=== PATIENT | female | born 1950 | race Caucasian/White ===

== ENCOUNTER 2022-03-07 14:26 | Inpatient (IN) | payer OTHER ==
[~2022-03-07 14:26] MED LIST: Iopamidol-370 76% 500 ML 1 ML ONE
[2022-03-07] MEDS ORDERED: Ondansetron PF 4 MG/2 ML Vial ONE (16:18)
[2022-03-07] MEDS ORDERED: Morphine 4 MG/ML VIAL ONE ×2 (16:18)
[2022-03-07] MEDS ORDERED: cefTRIAXone\\ROCEPHIN 2 GM VIAL ONE (16:18)
[2022-03-07 16:49] LABS: #Eosinphils 0.2 thou/uL (0.0-0.7); #Lymphocytes 2.5 thou/uL (1.20-3.40); #Monocytes 0.9 thou/uL (0.11-0.59); #Neutrophils 15.1 thou/uL (1.40-6.50); %Basophils 0.1 % (0.0-1.0); %Lymphocytes 13.3 % (21.0-51.0); %Monocytes 4.7 % (0.0-10.0); %Neutrophils 80.9 % (42.0-75.0); Hemoglobin 12.3 g/dL (12.0-16.0); Mean Corpuscular HGB CONC 30.9 g/dL (32.0-36.0); Mean Corpuscular Volume 93.8 fL (78.0-98.0); Mean Platelet Volume 8.5 fL (7.4-10.4); Platelet Count 231 thou/uL (130-400); RBC Distribution Width 15.9 % (11.5-14.5); Red Blood Cell (RBC) Count 4.25 mill/uL (4.20-5.40); White Blood Cell (WBC) Count 18.7 thou/uL (4.8-10.8)
[2022-03-07 16:50] LABS: Bacteria/HPF 4+ HPF (None Seen); Bilirubin 1+ (Negative); Blood, Urine 3+ (Negative); Clarity Turbid (Clear); Glucose, Urine (Dipstick) Normal (Negative); Ketone, Urine Trace mg/dL (Negative); Leukocyte 250 Leu/uL (Negative); Nitrite Negative (Negative); Protein, Urine (Dipstick) 70 mg/dL (Neg-Trace); RBC/HPF Greater than 50 HPF (0-3); Specific Gravity, Urine 1.028 (1.002-1.036); Squamous Epithelial 0-3 HPF (0-3); Urobilinogen 3 mg/dL (Less than 2); pH, Urine 5.5 (5.0-9.0)
[2022-03-07 17:00] LABS: INR-International Normal Ratio 1.2; PTT 32.1 sec (22.9-36.1); Prothrombin Time 15.2 sec (12.0-14.7)
[2022-03-07 17:17] LABS: ALT (SGPT) 22 U/L (8-55); AST (SGOT) 37 U/L (5-34); Albumin 3.6 g/dL (3.4-4.8); Alkaline Phosphatase 75 U/L (40-110); Anion Gap 15 mmol/L (10-20); BUN (Urea Nitrogen) 31 mg/dL (9.8-20.1); Bilirubin, Total 0.9 mg/dL (0.2-1.2); Calc. Creatinine Clearance 0 mL/min (70-130); Calcium 9.6 mg/dL (7.8-10.44); Carbon Dioxide 28 mmol/L (23-31); Chloride 97 mmol/L (98-107); Estimated GFR 47; Globulin 4.2 g/dL (2.4-3.5); Glucose 140 mg/dL (83-110); Lipase 14 U/L (8-78); Potassium 4.4 mmol/L (3.5-5.1); Protein, Total 7.8 g/dL (5.8-8.1); Sodium 136 mmol/L (136-145)
[2022-03-07] MEDS ORDERED: Acetaminophen 325 MG TAB PO PRN (20:15)
[2022-03-07] MEDS ORDERED: Ondansetron ODT 4 MG TAB SL PRN (20:15)
[2022-03-07] MEDS ORDERED: Ondansetron PF 4 MG/2 ML Vial IVP PRN (20:15)
[2022-03-07] MEDS ORDERED: Sodium Chloride 0.9% 1,000 ML IV SCH (20:15)
[2022-03-07] MEDS ORDERED: Senokot S 8.6-50 MG TAB PO PRN (22:00)
[2022-03-07] MEDS ORDERED: Bisacodyl 10 MG SUPP PR PRN (22:00)
[2022-03-07] MEDS ORDERED: HumaLOG 300 UNITS/3 ML VIAL SC PRN (22:00)
[2022-03-07] MEDS ORDERED: Dextrose 5% in Water 1,000 ML IV PRN (22:00)
[2022-03-07] MEDS ORDERED: Dextrose 50% Abboject 50 ML SYRINGE SLOW IVP PRN (22:00)
[2022-03-07] MEDS ORDERED: Acetaminophen 650 MG Suppository PR PRN (22:00)
[2022-03-07 22:32] VITALS: BMI 58.8
[2022-03-07] MEDS: Sodium Chloride 0.9% 1,000 ML IV SCH (23:41)
[2022-03-08 04:34] LABS: SARS-CoV-2 NAA Rapid Test Not Detected (NotDetected)
[2022-03-08 05:33] LABS: #Eosinphils 0.3 thou/uL (0.0-0.7); #Lymphocytes 2.7 thou/uL (1.20-3.40); #Monocytes 0.9 thou/uL (0.11-0.59); #Neutrophils 10.5 thou/uL (1.40-6.50); %Basophils 0.2 % (0.0-1.0); %Eosinophils 2.1 % (0.0-10.0); %Lymphocytes 18.7 % (21.0-51.0); %Monocytes 6.2 % (0.0-10.0); %Neutrophils 72.8 % (42.0-75.0); Hemoglobin 11.9 g/dL (12.0-16.0); Mean Corpuscular Volume 93.6 fL (78.0-98.0); Mean Platelet Volume 8.7 fL (7.4-10.4); Platelet Count 205 thou/uL (130-400); RBC Distribution Width 15.8 % (11.5-14.5); Red Blood Cell (RBC) Count 4.11 mill/uL (4.20-5.40); White Blood Cell (WBC) Count 14.5 thou/uL (4.8-10.8)
[2022-03-08 06:13] LABS: Anion Gap 13 mmol/L (10-20); BUN (Urea Nitrogen) 27 mg/dL (9.8-20.1); CK (CPK) 962 U/L (29-168); Calc. Creatinine Clearance 107 mL/min (70-130); Calcium 9.1 mg/dL (7.8-10.44); Carbon Dioxide 28 mmol/L (23-31); Chloride 99 mmol/L (98-107); Estimated GFR 50; Glucose 144 mg/dL (83-110); Potassium 4.1 mmol/L (3.5-5.1); Sodium 136 mmol/L (136-145)
[2022-03-08] MEDS: Sodium Chloride 0.9% 1,000 ML IV SCH ×2 (09:26→17:05)
[2022-03-08] MEDS: Famotidine 20 MG TAB PO SCH (09:27)
[2022-03-08] MEDS: cefTRIAXone\\ROCEPHIN 1 GM in Sodium Chloride 0.9% 100 ML IVPB SCH (09:27)
[2022-03-08] MEDS: Famotidine/PF 20 mg/2ml Vial SLOW IVP SCH (09:28)
[2022-03-08] MEDS: Gabapentin 300 MG CAP PO SCH ×2 (13:49→20:38)
[2022-03-08] MEDS: traMADol HCl 50 MG TAB PO PRN ×2 (13:50→20:39)
[2022-03-08] MEDS: HumaLOG 300 UNITS/3 ML VIAL SC PRN (17:05)
[2022-03-09] MEDS: HumaLOG 300 UNITS/3 ML VIAL SC PRN ×2 (06:09→13:07)
[2022-03-09] MEDS: Sodium Chloride 0.9% 1,000 ML IV SCH ×2 (06:10→13:10)
[2022-03-09] MEDS: Gabapentin 300 MG CAP PO SCH ×3 (08:32→22:12)
[2022-03-09] MEDS: Famotidine 20 MG TAB PO SCH (08:32)
[2022-03-09] MEDS: Famotidine/PF 20 mg/2ml Vial SLOW IVP SCH (08:32)
[2022-03-09] MEDS: cefTRIAXone\\ROCEPHIN 1 GM in Sodium Chloride 0.9% 100 ML IVPB SCH (08:34)
[2022-03-09] MEDS: traMADol HCl 50 MG TAB PO PRN ×2 (08:34→22:21)
[2022-03-09 10:29] LABS: #Basophils 0.1 thou/uL (0.0-0.2); #Eosinphils 0.4 thou/uL (0.0-0.7); #Lymphocytes 2.7 thou/uL (1.20-3.40); #Monocytes 0.9 thou/uL (0.11-0.59); #Neutrophils 6.6 thou/uL (1.40-6.50); %Basophils 0.5 % (0.0-1.0); %Eosinophils 3.6 % (0.0-10.0); %Lymphocytes 25.6 % (21.0-51.0); %Monocytes 8.6 % (0.0-10.0); %Neutrophils 61.7 % (42.0-75.0); Mean Corpuscular HGB CONC 30.4 g/dL (32.0-36.0); Mean Corpuscular Hemoglobin 29.1 pg (27.0-31.0); Mean Corpuscular Volume 95.6 fL (78.0-98.0); Mean Platelet Volume 8.7 fL (7.4-10.4); Platelet Count 217 thou/uL (130-400); Red Blood Cell (RBC) Count 4.12 mill/uL (4.20-5.40); White Blood Cell (WBC) Count 10.7 thou/uL (4.8-10.8)
[2022-03-09 10:34] LABS: Anion Gap 12 mmol/L (10-20); BUN (Urea Nitrogen) 11 mg/dL (9.8-20.1); CK (CPK) 479 U/L (29-168); Calc. Creatinine Clearance 121 mL/min (70-130); Carbon Dioxide 26 mmol/L (23-31); Chloride 103 mmol/L (98-107); Estimated GFR 58; Glucose 203 mg/dL (83-110); Sodium 137 mmol/L (136-145)
[2022-03-09] MEDS: Bisacodyl 5 MG TAB PO PRN (22:22)
[2022-03-09] MEDS: Guaifenesin DM 100-10/5 ML UDCUP PO PRN (22:32)
[2022-03-10] MEDS: Sodium Chloride 0.9% 1,000 ML IV SCH ×3 (03:20→21:26)
[2022-03-10 06:11] LABS: #Eosinphils 0.5 thou/uL (0.0-0.7); #Lymphocytes 3.1 thou/uL (1.20-3.40); #Neutrophils 6.9 thou/uL (1.40-6.50); %Basophils 0.1 % (0.0-1.0); %Eosinophils 4.3 % (0.0-10.0); %Lymphocytes 26.8 % (21.0-51.0); %Monocytes 8.8 % (0.0-10.0); Hemoglobin 11.5 g/dL (12.0-16.0); Mean Corpuscular HGB CONC 29.2 g/dL (32.0-36.0); Mean Corpuscular Volume 96.1 fL (78.0-98.0); Mean Platelet Volume 8.9 fL (7.4-10.4); Platelet Count 216 thou/uL (130-400); RBC Distribution Width 16.1 % (11.5-14.5); White Blood Cell (WBC) Count 11.6 thou/uL (4.8-10.8)
[2022-03-10 06:16] LABS: Anion Gap 12 mmol/L (10-20); BUN (Urea Nitrogen) 11 mg/dL (9.8-20.1); CK (CPK) 289 U/L (29-168); Calc. Creatinine Clearance 142 mL/min (70-130); Calcium 9.1 mg/dL (7.8-10.44); Carbon Dioxide 25 mmol/L (23-31); Chloride 104 mmol/L (98-107); Estimated GFR 70; Glucose 139 mg/dL (83-110); Potassium 4.3 mmol/L (3.5-5.1); Sodium 137 mmol/L (136-145)
[2022-03-10] MEDS: Famotidine 20 MG TAB PO SCH ×2 (08:56→21:18)
[2022-03-10] MEDS: Gabapentin 300 MG CAP PO SCH ×3 (08:57→21:18)
[2022-03-10] MEDS: Famotidine/PF 20 mg/2ml Vial SLOW IVP SCH ×2 (08:58→21:22)
[2022-03-10] MEDS: Acetaminophen 325 MG TAB PO PRN ×2 (15:51→21:19)
[2022-03-10] MEDS: cefTRIAXone\\ROCEPHIN 1 GM in Sodium Chloride 0.9% 100 ML IVPB SCH (17:26)
[2022-03-10] MEDS: Guaifenesin DM 100-10/5 ML UDCUP PO PRN (21:20)
[2022-03-10] MEDS: Bisacodyl 5 MG TAB PO PRN (21:26)
[2022-03-11 06:57] LABS: #Eosinphils 0.5 thou/uL (0.0-0.7); #Lymphocytes 2.8 thou/uL (1.20-3.40); #Monocytes 1.1 thou/uL (0.11-0.59); #Neutrophils 8.2 thou/uL (1.40-6.50); %Basophils 0.2 % (0.0-1.0); %Eosinophils 3.9 % (0.0-10.0); %Lymphocytes 22.1 % (21.0-51.0); %Monocytes 8.9 % (0.0-10.0); %Neutrophils 64.9 % (42.0-75.0); Mean Corpuscular HGB CONC 31.4 g/dL (32.0-36.0); Mean Corpuscular Hemoglobin 29.6 pg (27.0-31.0); Mean Corpuscular Volume 94.4 fL (78.0-98.0); Mean Platelet Volume 8.3 fL (7.4-10.4); Platelet Count 218 thou/uL (130-400); Red Blood Cell (RBC) Count 4.05 mill/uL (4.20-5.40); White Blood Cell (WBC) Count 12.6 thou/uL (4.8-10.8)
[2022-03-11 07:17] LABS: Anion Gap 7 mmol/L (10-20); BUN (Urea Nitrogen) 9 mg/dL (9.8-20.1); Calc. Creatinine Clearance 152 mL/min (70-130); Calcium 9.2 mg/dL (7.8-10.44); Carbon Dioxide 30 mmol/L (23-31); Chloride 106 mmol/L (98-107); Estimated GFR 76; Glucose 171 mg/dL (83-110); Potassium 3.9 mmol/L (3.5-5.1); Sodium 139 mmol/L (136-145)
[2022-03-11] MEDS: Famotidine 20 MG TAB PO SCH (09:29)
[2022-03-11] MEDS: Gabapentin 300 MG CAP PO SCH ×2 (09:29→15:50)
[2022-03-11] MEDS: Famotidine/PF 20 mg/2ml Vial SLOW IVP SCH (09:30)
[2022-03-11] MEDS: Sodium Chloride 0.9% 1,000 ML IV SCH ×2 (09:31→16:20)
[2022-03-11 15:45] VITALS: BP 177/88; TEMP 98.5
== END 2022-03-11 17:00 | disposition home health service (06) | DRG 565 ==
LOC: ERS 14:26 → SJJU 20:04
PROVIDERS: ADMIT Student in an Organized Health Care Education/Training Program; ATTEND Internal Medicine
DX: T79.6XXA Traumatic ischemia of muscle, initial encounter (principal); N17.9 Acute kidney failure, unspecified; N30.01 Acute cystitis with hematuria; Z68.43 Body mass index [BMI] 50.0-59.9, adult; W18.30XA Fall on same level, unspecified, initial encounter; Z91.81 History of falling; Y92.009 Unspecified place in unspecified non-institutional (private) residence as the place of occurrence of the external cause; E11.9 Type 2 diabetes mellitus without complications; I11.0 Hypertensive heart disease with heart failure; I50.9 Heart failure, unspecified; Z20.822 Contact with and (suspected) exposure to COVID-19; Z79.4 Long term (current) use of insulin; Z79.84 Long term (current) use of oral hypoglycemic drugs; Z86.73 Personal history of transient ischemic attack (TIA), and cerebral infarction without residual deficits; Z79.899 Other long term (current) drug therapy; M06.9 Rheumatoid arthritis, unspecified; G51.0 Bell's palsy; E66.01 Morbid (severe) obesity due to excess calories; Z83.3 Family history of diabetes mellitus; Z82.49 Family history of ischemic heart disease and other diseases of the circulatory system; Z82.3 Family history of stroke; Z88.0 Allergy status to penicillin; Z79.52 Long term (current) use of systemic steroids; Z98.51 Tubal ligation status; Z90.49 Acquired absence of other specified parts of digestive tract; Z98.49 Cataract extraction status, unspecified eye
CPT/HCPCS: 36415; 36416; 70450; 71260; 72125; 74177; 80048; 80053; 81003; 81015; 82550; 83690; 85025; 85610; 85730; 93005; 96374; 96375; J0696; J1815; J2270; J2405; J3490; J7050; Q9967; U0002